=== PATIENT | male | born 1940 | race Caucasian/White ===

== ENCOUNTER 2017-02-25 12:37 | Emergency (ER) | payer MEDICARE ==
[2017-02-25] MEDS ORDERED: NAPROXEN 250 MG TABLET PO ONE (13:05)
[2017-02-25] MEDS ORDERED: CEPHALEXIN 500 MG CAPSULE PO ONE (13:05)
[2017-02-25] MEDS ORDERED: DIPH/PERTUSS(ACELL)/TETANUS VAC/PF 0.5 ML SYR (>=10YO) IM ONE (13:05)
--- NOTE | 2017-02-25 13:09 | ER Document Report ---
HPI - HPI Patient complains to provider of: r wrist pain Onset: Other - 2 days Onset/Duration: Persistent Quality of pain: Achy Pain Level: 2 Context: Patient presents complaining of right lateral wrist pain for the past 2 days. Patient denies any injury. Patient does have a history of gout for which he takes daily allopurinol. Patient states that typically his gout affects his feet and he has not had any attacks involving his hands or wrists. Patient denies any fever. Patient does report recently working in the garden and states he got multiple abrasions to bilateral upper extremities. Associated Symptoms: Other - r wrist pain. denies: Fever Exacerbated by: Movement Relieved by: Remaining still Similar symptoms previously: No Recently seen / treated by doctor: No - ROS ROS below otherwise negative: Yes Systems Reviewed and Negative: Yes All other systems reviewed and negative - CONSTITUTIONAL Constitutional: DENIES: Fever - NEURO Neurology: DENIES: Weakness - GASTROINTESTINAL Gastrointestinal: DENIES: Nausea - REPRODUCTIVE Reproductive: DENIES: : - MUSCULOSKELETAL Musculoskeletal: REPORTS: Extremity pain - DERM Skin Color: Erythema Skin Problems: None Past Medical History - General Information source: Patient - Social History Smoking Status: Never Smoker Frequency of alcohol use: Occasional Drug Abuse: None Occupation: none Family History: Reviewed & Not Pertinent Patient has suicidal ideation: No Patient has homicidal ideation: No Pulmonary Medical History: Reports: Hx Pneumonia Renal/ Medical History: Denies: Hx Peritoneal Dialysis GI Medical History: Reports: Hx Ulcer Musculoskeltal Medical History: Reports Hx Gout Past Surgical History: Reports: Hx Cholecystectomy - 2011, Hx Genitourinary Surgery - Part of small colon removed - Immunizations Immunizations up to date: Yes Hx Diphtheria, Pertussis, Tetanus Vaccination: Yes - unknown Vertical Provider Document - CONSTITUTIONAL Agree With Documented VS: Yes Exam Limitations: No Limitations General Appearance: WD/WN, No Apparent Distress - INFECTION CONTROL TRAVEL OUTSIDE OF THE [place] IN LAST 30 DAYS: No - HEENT HEENT: Atraumatic, Normocephalic - NECK Neck: Normal Inspection - RESPIRATORY Respiratory: Breath Sounds Normal, No Respiratory Distress O2 Sat by Pulse Oximetry: 96 - CARDIOVASCULAR Cardiovascular: Regular Rate, Regular Rhythm Pulses: Normal: Radial - BACK Back: Normal Inspection - MUSCULOSKELETAL/EXTREMETIES Musculoskeletal/Extremeties: MAEW, Tender - Over ulnar aspect of the right wrist with overlying erythema, no obvious edema - NEURO Level of Consciousness: Awake, Alert, Appropriate Motor/Sensory: No Motor Deficit - DERM Integumentary: Warm, Dry. negative: Abscess Notes: With multiple scratches to bilateral wrists and hands Course - Re-evaluation Re-evalutation: 02/25/17 13:43 The patient has been informed that they may have pre-hypertension or hypertension based on a blood pressure reading in the emergency department. I recommend that patient call the primary care provider listed on their discharge instructions or a physician of their choice by this week to arrange follow-up for further evaluation of possible pre-hypertension or hypertension. Suspect that patient is having a flareup of his gout involving his wrist. Will cover for cellulitis given his recent abrasions to bilateral upper extremities. Discussed worsening signs or symptoms the patient should return immediately for. Patient verbalized understanding - Vital Signs Vital signs: Temp Pulse Resp BP Pulse Ox 97.6 F 73 146/81 H 96 02/25/17 12:41 02/25/17 12:41 02/25/17 12:41 02/25/17 12:41 - Diagnostic Test Radiology reviewed: Pending, Image reviewed Discharge - Discharge Clinical Impression: Gout Qualifiers: Gout site: wrist Encounter type: initial encounter Chronicity: unspecified Laterality: right Cellulitis Qualifiers: Site of cellulitis: extremity Site of cellulitis of extremity: upper extremity Laterality: right Qualified Code(s): L03.113 - Cellulitis of right upper limb Condition: Stable Disposition: HOME, SELF-CARE Instructions: Gout ([facility]), Gout Diet ([facility]), Cellulitis ([facility]), Cephalexin ([facility]) Additional Instructions: Return immediately for any new or worsening symptoms Followup with your primary care provider, call tomorrow to make a followup appointment Prescriptions: Acetaminophen with Codeine [Acetaminophen-Cod #3 Tablet] 1 each PO TID PRN #12 tablet PRN Reason: Cephalexin Monohydrate [Keflex 500 mg Capsule] 500 mg PO BID 7 Days Forms: Elevated Blood Pressure Referrals: LATOSHA ENRIQUE MD [Primary Care Provider] - Follow up in 3-5 days
--- NOTE | 2017-02-25 13:46 | RADIOLOGY REPORT (SQ) ---
EXAM DESCRIPTION: WRIST RIGHT 3 VIEWS COMPLETED DATE/TIME: 02/25/2017 1:30 pm REASON FOR STUDY: r lateral wrist pain COMPARISON: None. NUMBER OF VIEWS: Three views. TECHNIQUE: AP, lateral, and oblique radiographic images acquired of the right wrist. LIMITATIONS: None. FINDINGS: MINERALIZATION: Normal. BONES: No acute fracture or dislocation. No worrisome bone lesions. Normal alignment. SOFT TISSUES: No soft tissue swelling. No foreign body. OTHER: Some arthritic changes are noted. If an occult fracture suspected clinically, consider follow up imaging. IMPRESSION: No acute fracture identified. Mild arthritic change. TECHNICAL DOCUMENTATION: JOB ID: [id number] [employer]- All Rights Reserved
[2017-02-25 14:04] VITALS: BP 145/73
== END 2017-02-25 13:59 | disposition home or self-care (01) ==
LOC: ER 12:37
DX: M10.9 Gout, unspecified (principal); M25.531 Pain in right wrist; L03.113 Cellulitis of right upper limb; R03.0 Elevated blood-pressure reading, without diagnosis of hypertension; Z90.49 Acquired absence of other specified parts of digestive tract; Z23 Encounter for immunization
CPT/HCPCS: 99283; 90471; 73110; 90715; A9270 ×2

== ENCOUNTER 2017-06-09 18:15 | Emergency (ER) | payer MEDICARE ==
[2017-06-09] MEDS ORDERED: NITROFURANTOIN MONOHYD/M-CRYST 100 MG CAPSULE PO ONE (21:27)
--- NOTE | 2017-06-09 21:44 | ER Document Report ---
ED Extremity Problem, Lower - General Chief Complaint: Foot Injury Stated Complaint: RIGHT FOOT PAIN Time Seen by Provider: 06/09/17 21:35 Mode of Arrival: Ambulatory Information source: Patient Notes: 37-year-old male presents to ED for complaint of pain to the back of his right foot that started Friday. His states he climbs up and down ladders put in brick on their house. He states he does not know of any definite injury but the pain is severe in his heel. Patient has a history of gout but this is not a gout flareup he says there is no redness no warmth and no swelling to the area. TRAVEL OUTSIDE OF THE [place] IN LAST 30 DAYS: No - HPI Patient complains to provider of: Pain Location: Foot - Right foot Occurred: Other - Friday Onset/Duration: Gradual, Worse Quality of pain: Sharp, Throbbing Severity: Moderate Pain Level: 4 Context: Other - Painful ambulation Recent injury: Possibly Associated symptoms: Painful ambulation Exacerbated by: Walking Relieved by: Nothing - Related Data Allergies/Adverse Reactions: No Known Allergies Allergy (Verified 06/09/17 18:29) Past Medical History - General Information source: Patient - Social History Smoking Status: Never Smoker Cigarette use (# per day): No Chew tobacco use (# tins/day): No Smoking Education Provided: No Frequency of alcohol use: None Drug Abuse: None Occupation: Retired Lives with: Family Family History: Reviewed & Not Pertinent Patient has suicidal ideation: No Patient has homicidal ideation: No - Past Medical History Cardiac Medical History: Reports: None Pulmonary Medical History: Reports: Hx Pneumonia EENT Medical History: Reports: None Neurological Medical History: Reports: None Endocrine Medical History: Reports: None Renal/ Medical History: Reports: None Malignancy Medical History: Reports None GI Medical History: Reports: Hx Ulcer, Hx Colonoscopy, Hx Endoscopy Musculoskeltal Medical History: 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, Reports Hx Gout Skin Medical History: Reports None Psychiatric Medical History: Reports: None Traumatic Medical History: Reports: None Infectious Medical History: Reports: None Past Surgical History: Reports: Hx Abdominal Surgery - Repair of ulcer, Hx Bowel Surgery - Part of small colon removed, Hx Cholecystectomy - 2011 - Immunizations Immunizations up to date: Yes Hx Diphtheria, Pertussis, Tetanus Vaccination: Yes - unknown Review of Systems - Review of Systems Constitutional: No symptoms reported EENT: No symptoms reported Cardiovascular: No symptoms reported Respiratory: No symptoms reported Gastrointestinal: No symptoms reported Genitourinary: No symptoms reported Male Genitourinary: No symptoms reported Musculoskeletal: Other - Right heel pain Skin: No symptoms reported Hematologic/Lymphatic: No symptoms reported Neurological/Psychological: No symptoms reported -: Yes All other systems reviewed and negative Physical Exam - Vital signs Vitals: Temp Pulse Resp BP Pulse Ox 98.3 F 87 16 127/74 H 98 06/09/17 18:26 06/09/17 18:26 06/09/17 18:26 06/09/17 18:26 06/09/17 18:26 Interpretation: Normal - General General appearance: Appears well, Alert - HEENT Head: Normocephalic, Atraumatic Eyes: Normal Pupils: PERRL - Respiratory Respiratory status: No respiratory distress Chest status: Nontender Breath sounds: Normal Chest palpation: Normal - Cardiovascular Rhythm: Regular Heart sounds: Normal auscultation Murmur: No - Abdominal Inspection: Normal Distension: No distension Bowel sounds: Normal Tenderness: Nontender Organomegaly: No organomegaly - Back Back: Normal, Nontender - Extremities General upper extremity: Normal inspection, Nontender, Normal color, Normal ROM , Normal temperature General lower extremity: Normal inspection, Normal color, Normal ROM, Normal temperature. No: Adal's sign Foot: Tender, No evidence of FB, Other - Pain to the posterior heel since Friday - Neurological Neuro grossly intact: Yes Cognition: Normal Orientation: AAOx4 Marie Coma Scale Eye Opening: Spontaneous Marie Coma Scale Verbal: Oriented Marie Coma Scale Motor: Obeys Commands Marie Coma Scale Total: 15 Speech: Normal Motor strength normal: LUE, RUE, LLE, RLE Sensory: Normal - Psychological Associated symptoms: Normal affect, Normal mood - Skin Skin Temperature: Warm Skin Moisture: Dry Skin Color: Normal Course - Vital Signs Vital signs: Temp Pulse Resp BP Pulse Ox 98.3 F 87 16 127/74 H 98 06/09/17 18:26 06/09/17 18:26 06/09/17 18:26 06/09/17 18:26 06/09/17 18:26 Procedures - Immobilization Right Ankle Time completed: 22:54 Immobilizer type: Ronny wrap Performed by: Other - drop hammer set up operator Post-Proc Neuro Vasc Exam: Normal Alignment checked and good: Yes Discharge - Discharge Clinical Impression: Tendonitis, Achilles, right Condition: Stable Disposition: HOME, SELF-CARE Additional Instructions: Tendonitis The pain you are having is due to tendonitis -- an inflammation around a muscle tendon. It's usually caused by overuse or repeated minor injuries ( strains) of the tendon. Tendonitis can take two to four weeks to heal. In fact, you may actually worsen for a few days despite treatment. Tendonitis is usually treated with rest, local heat, and antiinflammatory medication. Sometimes cold packs are recommended if the tendonitis has just started. If the pain is severe or prolonged, cortisone injections may be required. Call the doctor if pain or swelling become severe, if new discoloration or redness appears, or if numbness is noted. Ronny Wrap A compression dressing (ronny wrap) has been placed. This helps hold the area still. It limits swelling and internal bleeding. The wrap should be comfortably snug -- not tight. You should feel a sense of pressure, but not severe pain under the wrap. Unless the physician tells you otherwise, you can adjust the wrap for comfort. If the wrap causes symptoms suggesting it's too tight -- uncomfortable pressure, swelling or discoloration beyond the wrap, numbness, or severe pain - - you must loosen the wrap. If these symptoms don't resolve promptly, return for re-evaluation. Exercises for the Foot Muscles Stretching and strengthening of the foot muscles is an important part of recovery from injury, as well as in treatment and prevention of overuse syndromes like plantar fasciitis. TOWEL CURLS: Put your foot on a dry towel. Curl your toes to pick it up, then drop it. As it becomes easier, use a heavier towel. Repeat 20 times, twice daily. GONZALEZ CURLS: Lift and turn your knee, so your foot is against the opposite leg about mid-gonzalez. Try to "grab" the entire gonzalez bone with your toes, while moving your foot up and down the leg for one minute. Repeat twice daily. TOE LIFTS: Put your opposite foot over your 2nd to 5th toes. Now lift the toes up, pushing the other foot upward. Repeat 10 times, twice daily. Repeat using the large toe. EVERSIONS: Cross the opposite foot over, placing the heel just behind the 4th and 5th toes. Try to lift up the outside of the bottom foot. Hold 10 seconds. Repeat twice daily. Ankle Exercise Program To restore the ankle to normal, it's important to strengthen the muscles that support it -- especially those that lift the foot upward. Good muscle tone will keep stress off the injury while it heals. EARLY - Once the doctor allows you to walk on the ankle, you can begin. Lean your back against a wall. Standing on your heels, lift the balls of both feet up, hold a second, then back down. Work up to 100 repetitions. Next, using the wall for balance, stand on one foot. Lift the heel up, then down. Work up to 100 repetitions for each foot. BALANCE TRAINING - To retrain the ankle to react to "tipping", stand on one foot for two minutes. Go from flat-footed to standing on the toes and back again slowly. Repeat with the other foot. LATER - When your ankle has regained full motion and you're walking pain- free, begin exercise against resistance. In a sitting position, pull the top of the foot towards you against resistance 20 times. Use either elastic material or a weight attached to the toes. Swing the knee so the foot is to the side of the body, and repeat. Anti-Inflammatory Medication You have received a prescription for an antiinflammatory agent. This is an excellent, safe drug for pain control. In addition, it has potent antiinflammatory effects which are beneficial, especially in the treatment of injuries, arthritis, or tendonitis. It's best to take this medicine with food. Persons with ulcer disease or allergy to aspirin should notify their physician of this before taking this drug. Take the medication exactly as prescribed. Don't take additional doses unless instructed to do so by your doctor. If you develop wheezing, shortness of breath, hives, faintness, stomach pain, vomiting, or dark black stools, return for re-evaluation at once. FOLLOW-UP CARE: If you have been referred to a physician for follow-up care, call the physician s office for an appointment as you were instructed or within the next two days. If you experience worsening or a significant change in your symptoms, notify the physician immediately or return to the Emergency Department at any time for re-evaluation. Prescriptions: Ibuprofen 600 mg PO Q6HP PRN #20 tablet PRN Reason: Forms: Elevated Blood Pressure Referrals: LATOSHA ENRIQUE MD [Primary Care Provider] - Follow up as needed CRISTIANO CARRERA DO [ACTIVE STAFF] - Follow up as needed
--- NOTE | 2017-06-09 22:21 | RADIOLOGY REPORT (SQ) ---
EXAM DESCRIPTION: FOOT RIGHT COMPLETE COMPLETED DATE/TIME: 06/09/2017 9:45 pm REASON FOR STUDY: pain back of foot COMPARISON: September 2014 NUMBER OF VIEWS: Three views. TECHNIQUE: AP, lateral and oblique radiographic images acquired of the right foot. LIMITATIONS: None. FINDINGS: MINERALIZATION: Normal. BONES: No acute fracture or dislocation. No worrisome bone lesions. JOINTS: Mild degenerative changes are identified at the level the 1st MTP joint SOFT TISSUES: No soft tissue swelling. No foreign body. OTHER: No other significant finding. IMPRESSION: NO RADIOGRAPHIC EVIDENCE OF ACUTE INJURY other findings as noted above. TECHNICAL DOCUMENTATION: JOB ID: [id number] [employer]- All Rights Reserved
[2017-06-09] MEDS ORDERED: IBUPROFEN 600 MG TABLET PO ONE (22:48)
[2017-06-09 23:01] VITALS: BP 118/72
== END 2017-06-09 22:56 | disposition home or self-care (01) ==
LOC: ER 18:15
DX: M76.61 Achilles tendinitis, right leg (principal); M79.671 Pain in right foot; M10.9 Gout, unspecified; X50.3XXA Overexertion from repetitive movements, initial encounter
CPT/HCPCS: 99283

== ENCOUNTER → 2017-06-25 | Outpatient (CLI) | payer MEDICARE ==
--- NOTE | 2017-06-25 09:21 | RADIOLOGY REPORT (SQ) ---
EXAM DESCRIPTION: MRI HEAD WITHOUT COMPLETED DATE/TIME: 06/25/2017 7:41 am REASON FOR STUDY: TINNITUS OF BOTH EARS (H93.12) H93.12 TINNITUS, LEFT EAR COMPARISON: None. TECHNIQUE: Multiplanar imaging includes non-contrasted T1, T2, FLAIR, and Diffusion with ADC map seq uences. Thin sections through the internal auditory canals. Images stored on PACS. LIMITATIONS: None. FINDINGS: ANATOMY: No anomalies. Normal vascular flow voids. Pituitary fossa normal. CSF SPACES: Normal in size and contour. No hemorrhage. CEREBRUM: A few high-signal intensity lesions scattered throughout the white matter on FLAIR imaging with distribution suggesting chronic micro-vascular ischemic change. Sulci and gyri normal in size a nd contour. No evidence of hemorrhage, mass or extraaxial fluid collection. POSTERIOR FOSSA: No signal alteration. No hemorrhage. No edema, masses or mass effect. Internal jennifer tory canals, cerebello-pontine angles, mastoids normal. DIFFUSION: Negative for acute or sub-acute infarction. ORBITS: No masses. Globes normal. PARANASAL SINUSES: No fluid levels. Mucosa normal. OTHER: No other significant finding. IMPRESSION: No acute abnormality in the brain. EVIDENCE OF ACUTE STROKE: NO. TECHNICAL DOCUMENTATION: JOB ID: [id number] [employer]- All Rights Reserved
== END ==
LOC: RAD 06:49
PROVIDERS: ATTEND Otolaryngology
DX: H93.13 Tinnitus, bilateral (principal)
CPT/HCPCS: 70551

== ENCOUNTER 2017-10-12 06:56 | Emergency (ER) | payer MEDICARE ==
[2017-10-12 07:08] VITALS: BP 136/68
[2017-10-12] MEDS ORDERED: TETRACAINE HCL 0.5% OPH SOLN 2 ML OS ONE (07:19)
[2017-10-12] MEDS ORDERED: PREDNISOLONE ACETATE 1% OPH SUSP 5 ML OS ONE (07:43)
[2017-10-12] MEDS ORDERED: CYCLOPENTOLATE HCL 2% OPH SOLN 2 ML OS ONE (07:45)
--- NOTE | 2017-10-12 07:52 | ER Document Report ---
ED Eye Complaint - General Chief Complaint: Eye Pain Stated Complaint: LEFT EYE PAIN Time Seen by Provider: 10/12/17 07:13 Mode of Arrival: Ambulatory Information source: Patient Notes: Patient is a 77-year-old male who presents to the ER today for left eye redness and pain since 2 days ago. Patient denies any injury. 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 He denies any drainage, watering. He does wear glasses, no contacts. He does have a history of cataract. No history of glaucoma. He does have an eye doctor that he follows with. He denies any runny nose, cough, upper respiratory symptoms or illness recently. TRAVEL OUTSIDE OF THE [place] 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, Reports Hx Gout Past Surgical History: Reports: Hx Abdominal Surgery - Repair of ulcer, Hx Bowel Surgery - Part of small colon removed, Hx Cholecystectomy - 2011, Hx Genitourinary Surgery - Part of small colon removed - Immunizations Immunizations up to date: Yes Hx Diphtheria, Pertussis, Tetanus Vaccination: Yes - unknown Review of Systems - Review of Systems Constitutional: No symptoms reported EENT: See HPI Cardiovascular: No symptoms reported Respiratory: No symptoms reported Gastrointestinal: No symptoms reported Genitourinary: No symptoms reported Male Genitourinary: No symptoms reported Musculoskeletal: No symptoms reported Skin: No symptoms reported Hematologic/Lymphatic: No symptoms reported Neurological/Psychological: No symptoms reported Physical Exam - Vital signs Vitals: Temp Pulse Resp BP Pulse Ox 97.4 F 58 L 18 136/68 H 98 10/12/17 07:03 10/12/17 07:03 10/12/17 07:03 10/12/17 07:03 10/12/17 07:03 - Notes Notes: PHYSICAL EXAMINATION: GENERAL: Well-appearing and in no acute distress. HEAD: Atraumatic, normocephalic. EYES: Left pupil is slightly smaller than the right, but reactive to light, extraocular movements intact and does not cause pain, sclera erythematous to the left eye laterally and inferiorly to the cornea, conjunctiva are normal. No watering, no drainage NECK: Normal range of motion, supple without lymphadenopathy LUNGS: CTAB and equal. No wheezes rales or rhonchi. HEART: Regular rate and rhythm without murmurs EXTREMITIES: Normal range of motion, no pitting edema. No cyanosis. NEUROLOGICAL: Cranial nerves grossly intact. Normal sensory/motor exams. PSYCH: Normal mood, normal affect. SKIN: Warm, Dry, normal turgor, no rashes or lesions noted Course - Re-evaluation Re-evalutation: 10/12/17 07:51 I exam was performed, pressures in the left eye were 15, 15 and 14 consecutively. Fluorescein stain revealed no ulcer or abrasion, foreign body. Due to patient's constricted pupil, pain and erythema without drainage, I will treat for uveitis with antiviral eyedrops and prednisone acetate eyedrops. He was also given cyclopentolate here in the emergency department to dilate the eye to help with any spasm that may be causing pain. patient does have an eye doctor and states he will call them on the next business day to have a follow- up appointment. 10/12/17 07:52 - Vital Signs Vital signs: Temp Pulse Resp BP Pulse Ox 97.4 F 58 L 18 136/68 H 98 10/12/17 07:03 10/12/17 07:03 10/12/17 07:03 10/12/17 07:03 10/12/17 07:03 Procedures - Eye Procedure Left Time completed: 07:40 Eye Irrigated w/ Saline (ccs): 30 Alcaine Drops Administered: Yes Fluorescein applied: Left Cyclogel 2 Drops Administered: Left eye Slit lamp used: No Notes: 10/12/17 07:52 No ulcer or abrasion, no foreign body Discharge - Discharge Clinical Impression: Acute anterior uveitis of left eye Condition: Stable Disposition: HOME, SELF-CARE Additional Instructions: Return immediately for any new or worsening symptoms. Follow up with eye doctor, call tomorrow to make followup appointment. Prescriptions: Trifluridine [Viroptic 1% Oph Soln 7.5 Ml Bottle] 1 drop OS Q2 #1 bottle Referrals: LATOSHA ENRIQUE MD [Primary Care Provider] - Follow up as needed
== END 2017-10-12 08:15 | disposition home or self-care (01) ==
LOC: ER 06:56
DX: H20.00 Unspecified acute and subacute iridocyclitis (principal); H57.12 Ocular pain, left eye; H54.40 Blindness, one eye, unspecified eye; Z90.49 Acquired absence of other specified parts of digestive tract
CPT/HCPCS: 99283; J3490 ×2

== ENCOUNTER 2018-01-18 21:14 | Emergency (ER) | payer MEDICARE ==
--- NOTE | 2018-01-18 21:33 | ER Document Report ---
ED General - General TRAVEL OUTSIDE OF THE [place] IN LAST 30 DAYS: No <NICO SAAB - Last Filed: 01/18/18 23:55> <JERSON BEATTY - Last Filed: 01/19/18 00:13> - General Chief Complaint: Jaw Injury Stated Complaint: JAW LOCKED UP Time Seen by Provider: 01/18/18 21:28 - HPI Notes: Patient is a 77-year-old male who presents to the ED complaining of his jaw being stuck in the open position that occurred just prior to arrival. Patient states that he was opening his mouth when he felt the right side "slip out" and now his jaw stuck. Patient states that he does not have any other concerns or complaints. He has otherwise been eating and drinking without difficulties prior to incident. Denies any drug allergies. No other concerns or complaints. Patient states that his situation is just uncomfortable, but does not have any sharp pain. Denies any injury. Patient states that this has happened in the past, but he was able to "put it back" on his own. Denies any headache, fever, head injury, neck pain, URI, sore throat, chest pain, palpitations, syncope, cough, shortness of breath, wheeze, dyspnea, abdominal pain, nausea/vomiting/diarrhea, urinary retention, dysuria, hematuria, or rash. (NICO SAAB) - Related Data Allergies/Adverse Reactions: No Known Allergies Allergy (Verified 06/09/17 18:29) Past Medical History - Social History Smoking Status: Unknown if Ever Smoked Family History: Reviewed & Not Pertinent Pulmonary Medical History: Reports: Hx Pneumonia Renal/ Medical History: Denies: Hx Peritoneal Dialysis GI Medical History: Reports: Hx Ulcer, Hx Colonoscopy, Hx Endoscopy Musculoskeltal Medical History: 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, Reports Hx Gout Past Surgical History: Reports: Hx Abdominal Surgery - Repair of ulcer, Hx Bowel Surgery - Part of small colon removed, Hx Cholecystectomy - 2011, Hx Genitourinary Surgery - Part of small colon removed - Immunizations Immunizations up to date: Yes Hx Diphtheria, Pertussis, Tetanus Vaccination: Yes - unknown <NICO SAAB - Last Filed: 01/18/18 23:55> Review of Systems - Review of Systems -: Yes All other systems reviewed and negative <NICO SAAB - Last Filed: 01/18/18 23:55> Physical Exam <NICO SAAB - Last Filed: 01/18/18 23:55> <JERSON BEATTY - Last Filed: 01/19/18 00:13> - Vital signs Vitals: Temp Pulse Resp BP Pulse Ox 97.7 F 69 20 121/62 98 01/18/18 21:18 01/18/18 21:18 01/18/18 21:18 01/18/18 21:18 01/18/18 21:18 - Notes Notes: PHYSICAL EXAMINATION: GENERAL: Well-appearing, well-nourished and in no acute distress. A&Ox4. Answers questions appropriately. Moves comfortably w/o notable distress HEAD: Atraumatic, normocephalic. EYES: Pupils equal round and reactive to light, extraocular movements intact, sclera anicteric, conjunctiva are normal. ENT: Nares patent and with clear discharge. oropharynx no erythema without exudates. No tonsilar hypertrophy without erythema or exudate. No palatine shift. Uvula midline. No tongue protrusion. No drooling, hoarseness, or airway compromise. Moist mucous membranes. Mandible is open and unable to be closed. + possible dislocation on the rt side. Rt lower jaw does appear lower than the left. NECK: Normal range of motion, supple without lymphadenopathy. No rigidity/ meningismus. LUNGS: Breath sounds clear to auscultation bilaterally and equal. No wheezes rales or rhonchi. No retractions HEART: Regular rate and rhythm without murmurs, rubs, gallops. NEUROLOGICAL: Normal speech, normal gait. Normal sensory, motor exams PSYCH: Normal mood, normal affect. SKIN: Warm, Dry, normal turgor, no rashes or lesions noted. (NICO SAAB) Course <NICO SAAB - Last Filed: 01/18/18 23:55> <JERSON BEATTY - Last Filed: 01/19/18 00:13> - Re-evaluation Re-evalutation: 01/18/18 21:[address] Beatty. We will obtain a mandible XR and place a saline lock. 01/18/18 23:[address] Jain Radiologist about XR result. Recommended CT scan if worried about fracture. The jaw does appear to be dislocated on exam. Pt is very irritable at this time. Reviewed with Dr. Beatty and we will start the set up for conscious sedation with Propofol 0.5mg/kg start. 01/18/18 23:52 Patient is an afebrile, well-hydrated, 77-year-old male who presents to the ED with jaw dislocation, since reduced. Vitals are acceptable. PE is otherwise unremarkable. Procedural sedation and Manual reduction was performed to assess without any complications by Dr. Beatty. The mandible spontaneously reduced once sedated. Patient states that he is feeling much better and is ready to go home. patient has an appointment already set up with his primary care doctor on Friday. Conservative measures for symptoms. Return to the ED with any worsening/concerning symptoms otherwise as reviewed in discharge. Patient is in agreement. (NICO SAAB) - Vital Signs Vital signs: Temp Pulse Resp BP Pulse Ox 97.7 F 65 16 118/64 99 01/18/18 21:18 01/18/18 23:51 01/18/18 23:51 01/18/18 23:51 01/18/18 23:51 Procedures - Conscious Sedation Conscious sedation Time started: 23:30 Time completed: 23:41 Consent obtained: Yes Indication: Mandible reduction Prior complications: Procedural sedation Pt with a mild systemic disease.: P2. - ASA Classification. Airway Evaluation: Normal anatomy Mallampati Classification: Class 2 Used during procedure: Suction available, IV access obtained, Pulse ox on pt., diet consultant on pt. Medications administered: Diprivan Reversal agents: None I personally performed/intraservice time: Sedation, Procedure Complications: No - Joint Reduction/Fracture Care Mandible Time completed: 23:41 Consent obtained: Yes Conscious sedation: Yes Pre-procedure NV exam: Yes Fracture: Other Manipulation comment: Reduced with induction of procedural sedation. Post-procedure NV exam: Yes Complications: No <JERSON BEATTY - Last Filed: 01/19/18 00:13> Discharge <NICO SAAB - Last Filed: 01/18/18 23:55> <JERSON BEATTY - Last Filed: 01/19/18 00:13> - Discharge Clinical Impression: Jaw dislocation Qualifiers: Encounter type: initial encounter Qualified Code(s): S03.00XA - Dislocation of jaw, unspecified side, initial encounter Condition: Stable Disposition: HOME, SELF-CARE Additional Instructions: Rest, Ice Tylenol/ibuprofen as needed Light stretches daily Strength exercises as able Moist heat and massage may help F/u with your PCP in 2-3 days for a recheck Consider consult(s) with Oral/maxillofacial surgery for ongoing/worsening symptoms Return to the ED with any worsening symptoms and/or development of fever, headache, chest pain, palpitations, syncope, shortness of breath, trouble breathing, abdominal pain, n/v/d, muscle weakness/paralysis, numbness/tingling, swelling, redness, or other worsening symptoms that are concerning to you. Referrals: LATOSHA ENRIQUE MD [Primary Care Provider] - 01/20/18
--- NOTE | 2018-01-18 22:24 | RADIOLOGY REPORT (SQ) ---
EXAM DESCRIPTION: MANDIBLE 4 VIEWS OR MORE COMPLETED DATE/TIME: 01/18/2018 9:55 pm REASON FOR STUDY: jaw is stuck open COMPARISON: None. NUMBER OF VIEWS: Four view. TECHNIQUE: Images of the mandible acquired. AP, Dioni's, angled right, angled left mandible images. LIMITATIONS: None. FINDINGS: MANDIBLE: No acute fracture. Both the right and left temporomandibular joints are aligne d in the open position with mandibular head anterior to the temporal bones fossa. ORBITS: No fracture. No foreign body. SINUSES: No mucosal thickening. No air fluid levels. FACIAL BONES: No fracture. OTHER: No other significant finding. IMPRESSION: No acute fracture. Both the right and left temporomandibular joints are aligned in the open position with mandibular head anterior to the temporal bones fossa. TECHNICAL DOCUMENTATION: JOB ID: [id number] [id number] 2010 [employer]- All Rights Reserved Reading location - IP/workstation name: [email or web address]
[2018-01-18] MEDS ORDERED: PROPOFOL INJ 200 MG/20 ML VIAL IV ONE ×2 (23:03→23:40)
[2018-01-19 00:32] VITALS: BP 113/60
[2018-01-19] MEDS ORDERED: PROPOFOL INJ 200 MG/20 ML VIAL IV ONE (23:40)
== END 2018-01-19 00:32 | disposition home or self-care (01) ==
LOC: ER 21:14
PROC: 0RSCXZZ Reposition Right Temporomandibular Joint, External Approach (ICD-10-PCS; principal; 2018-01-18)
DX: S09.93XA Unspecified injury of face, initial encounter (principal); S03.00XA Dislocation of jaw, unspecified side, initial encounter; X58.XXXA Exposure to other specified factors, initial encounter; Z90.49 Acquired absence of other specified parts of digestive tract
CPT/HCPCS: 99283; 99152; 70110; 21480; J2704

== ENCOUNTER 2019-05-11 14:43 | Emergency (ER) | payer MEDICARE, OTHER ==
--- NOTE | 2019-05-11 15:14 | ER Document Report ---
ED Medical Screen (RME) - General Stated Complaint: FALL/GROIN PAIN Time Seen by Provider: 05/11/19 15:06 Primary Care Provider: LATOSHA ENRIQUE MD [Primary Care Provider] - Follow up as needed Mode of Arrival: Ambulatory Information source: Patient Notes: This 79-year-old male presents emergency department with complaints of left testicular swelling and ecchymosis. Reports he was fixing a deck when he fell and straddled the board falling on his groin. Reports he is able to void without problems but left testicle is swollen and black. Also reports at that time he cut his left wrist while working and reports his tetanus is up-to-date and he was stung by 3 bees. Reports he is not allergic to bees. Patient declines Motrin or Tylenol. Reports he is not taking any type of blood thinner. I have greeted and performed a rapid initial assessment of this patient. A comprehensive ED assessment and evaluation of the patient, analysis of test results and completion of the medical decision making process will be conducted by additional ED providers. Dictation of this chart was performed using voice recognition software; therefore, there may be some unintended grammatical errors. TRAVEL OUTSIDE OF THE [place] IN LAST 30 DAYS: No - Related Data Allergies/Adverse Reactions: No Known Allergies Allergy (Verified 06/09/17 18:29) Past Medical History Pulmonary Medical History: Reports: Hx Pneumonia Renal/ Medical History: Denies: Hx Peritoneal Dialysis GI Medical History: Reports: Hx Ulcer, Hx Colonoscopy, Hx Endoscopy Musculoskeltal Medical History: 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, Reports Hx Gout Past Surgical History: Reports: Hx Abdominal Surgery - Repair of ulcer, Hx Bowel Surgery - Part of small colon removed, Hx Cholecystectomy - 2011, Hx Genitourinary Surgery - Part of small colon removed - Immunizations Immunizations up to date: Yes Hx Diphtheria, Pertussis, Tetanus Vaccination: Yes - unknown Physical Exam - Vital signs Vitals: Temp Pulse Resp BP Pulse Ox 97.8 F 88 16 115/64 98 05/11/19 14:57 05/11/19 14:57 05/11/19 14:57 05/11/19 14:57 05/11/19 14:57 Course - Vital Signs Vital signs: Temp Pulse Resp BP Pulse Ox 97.8 F 88 16 115/64 98 05/11/19 14:57 05/11/19 14:57 05/11/19 14:57 05/11/19 14:57 05/11/19 14:57 Doctor's Discharge - Discharge Referrals: LATOSHA ENRIQUE MD [Primary Care Provider] - Follow up as needed
[2019-05-11 15:39] LABS: APPEARANCE,URINE CLEAR; BILIRUBIN,URINE NEGATIVE (NEGATIVE); COLOR,URINE YELLOW; GLUCOSE, URINE NEGATIVE (NEGATIVE); KETONES,URINE TRACE mg/dL (NEGATIVE); LEUKOCYTE ESTERASE,URINE NEGATIVE (NEGATIVE); NITRITE,URINE NEGATIVE (NEGATIVE); PROTEIN,URINE NEGATIVE (NEGATIVE); URINE SPECIFIC GRAVITY 1.021
--- NOTE | 2019-05-11 17:30 | ER Document Report ---
ED General - General Chief Complaint: Groin Injury Stated Complaint: FALL/GROIN PAIN Time Seen by Provider: 05/11/19 15:06 Primary Care Provider: LATOSHA ENRIQUE MD [Primary Care Provider] - Follow up as needed Mode of Arrival: Ambulatory Notes: Patient is a 79-year-old male that presents to the emergency department for chief complaint of straddle injury. Patient reports that he was pulling apart a deck, and lost his footing and ended up straddling a 2 by a piece of wood. He states this occurred around 10 AM this morning. He has had bruising around his testicles particularly in the left and some discomfort associated with that he currently rates his pain as a 2 out of 10 describes as an aching sensation. He denies being on any blood thinners. Denies any head or neck injury. He states his been able to walk without any difficulty. He denies any numbness, tingling or weakness. Denies any hematuria or dysuria. Denies any other complaints at this time. Past Medical History: Hypertension Past Surgical History: Denies recent or pertinent surgical history Social History: Denies tobacco, alcohol or drug use. Family History: Reviewed and noncontributory for presenting illness Allergies: Reviewed, see documented allergy list. REVIEW OF SYSTEMS: Other than noted above, the 12 point review of systems was reviewed with the patient and were negative, all pertinent findings are included in the HPI. PHYSICAL EXAMINATION: Vital signs reviewed, nursing noted reviewed. GENERAL: Well-appearing, well-nourished and in no acute distress. HEAD: Atraumatic, normocephalic. EYES: Eyes appear normal, extraocular movements intact, sclera anicteric, conjunctiva are normal. ENT: nares patent, oropharynx clear without exudates. Moist mucous membranes. NECK: Normal range of motion, supple without lymphadenopathy, no midline tenderness LUNGS: Breath sounds clear to auscultation bilaterally and equal. No wheezes rales or rhonchi. HEART: Regular rate and rhythm without murmurs ABDOMEN: Soft, nontender, normoactive bowel sounds. No rebound, guarding, or rigidity. No masses appreciated. EXTREMITIES: Nontender, good range of motion, no pitting or edema. Patient has excellent range of motion of both his lower extremities particular the hips, negative for logrolling, is able to flex at the hip to 60 degrees without any issues or pain. There is no shortening or gross deformity of the lower extremities. Male genital: Patient is noted to have scrotal ecchymosis and mild edema particular in the left compared to the right, the testicles appear to be intact with palpation, and only mildly tender particular in the left compared to the right. There is mild ecchymosis at the base of the penis as well, but there is no tenderness to this area. There is no perineal tenderness to palpation. There is no blood at the meatus. NEUROLOGICAL: No focal neurological deficits. Moves all extremities spontaneously Motor and sensory grossly intact on exam. PSYCH: Normal mood, normal affect. SKIN: Warm, Dry, normal turgor, no rashes or lesions noted on exposed skin TRAVEL OUTSIDE OF THE [place] IN LAST 30 DAYS: No - Related Data Allergies/Adverse Reactions: No Known Allergies Allergy (Verified 06/09/17 18:29) Home Medications: Allopurinol Past Medical History - General Information source: Patient - Social History Smoking Status: Former Smoker Frequency of alcohol use: None Drug Abuse: None Family History: Reviewed & Not Pertinent Patient has suicidal ideation: No Patient has homicidal ideation: No Pulmonary Medical History: Reports: Hx Pneumonia Renal/ Medical History: Denies: Hx Peritoneal Dialysis GI Medical History: Reports: Hx Ulcer, Hx Colonoscopy, Hx Endoscopy Musculoskeletal Medical History: 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, Reports Hx Gout Past Surgical History: Reports: Hx Abdominal Surgery - Repair of ulcer, Hx Bowel Surgery - Part of small colon removed, Hx Cholecystectomy - 2011, Hx Genitour inary Surgery - Part of small colon removed - Immunizations Immunizations up to date: Yes Hx Diphtheria, Pertussis, Tetanus Vaccination: Yes - unknown Physical Exam - Vital signs Vitals: Temp Pulse Resp BP Pulse Ox 97.8 F 88 16 115/64 98 05/11/19 14:57 05/11/19 14:57 05/11/19 14:57 05/11/19 14:57 05/11/19 14:57 Course - Re-evaluation Re-evalutation: Patient seen and examined, vital signs reviewed, on my exam the patient was noted to have bruising to the scrotum, testicles felt intact, scrotal ultrasound was performed, demonstrated normal blood flow, and no injury to the tunica albicans, testicles otherwise intact. Patient was able to ambulate without issues in the emergency department, his pelvis was stable. And no hematuria on his urinalysis. At this point feel the patient be discharged home to follow-up with his primary care physician. He is advised if he has any painful urination or blood in the urine that he should return to the emergency department to be reevaluated. He otherwise appeared well on exam, and I feel he can be safely discharged home at this point. Laboratory 05/11/19 15:20 Urine Color YELLOW Urine Appearance CLEAR Urine pH 6.0 Ur Specific Hamilton 1.021 Urine Protein NEGATIVE Urine Glucose (UA) NEGATIVE Urine Ketones TRACE H Urine Blood NEGATIVE Urine Nitrite NEGATIVE Urine Bilirubin NEGATIVE Urine Urobilinogen 4.0 H Ur Leukocyte Esterase NEGATIVE Urine WBC (Auto) 1 Urine RBC (Auto) 1 Urine Mucus (Auto) RARE Urine Ascorbic Acid 40 H Scrotum Ultrasound 05/11/19 15:11 IMPRESSION: No acute findings. There is a small epididymal cyst on the right. There is trace hydrocele on each side. - Vital Signs Vital signs: Temp Pulse Resp BP Pulse Ox 97.8 F 88 16 115/64 98 05/11/19 14:57 05/11/19 14:57 05/11/19 14:57 05/11/19 14:57 05/11/19 14:57 - Laboratory Laboratory results interpreted by me: 05/11/19 15:20 Urine Ketones TRACE H Urine Urobilinogen 4.0 H Urine Ascorbic Acid 40 H Discharge - Discharge Clinical Impression: Contusion of scrotum Qualifiers: Encounter type: initial encounter Qualified Code(s): S30.22XA - Contusion of scrotum and testes, initial encounter Condition: Stable Disposition: HOME, SELF-CARE Instructions: Contusion ([facility]) Additional Instructions: You may apply warm or cool compress for 20 minutes on 20 minutes off to help with swelling and bruising, you may notice bruising up to 2 weeks after this injury. Please follow-up with your primary care physician. If you do notice painful urination or blood in your urine, please return to the emergency department to be reevaluated. Referrals: LATOSHA ENRIQUE MD [Primary Care Provider] - Follow up in 1 week
--- NOTE | 2019-05-11 18:01 | RADIOLOGY REPORT (SQ) ---
EXAM DESCRIPTION: U/S SCROTUM W/DOPPLER COMPLETED DATE/TIME: 05/11/2019 5:27 pm REASON FOR STUDY: fell, enlarged testicle, pain COMPARISON: None. TECHNIQUE: Static and realtime wiggins scale imaging of the scrotum and testes. Selected color Doppler and spectral images recorded to document blood flow. LIMITATIONS: None. FINDINGS: RIGHT: TESTICLE: Normal size, 3.3 x 3.3 x 2.8 cm. Normal echotexture. Normal blood flow. No mass. EPIDIDYMIS: Normal, 13 x 12 x 14 mm. 7 mm epididymal cyst. HYDROCELE OR VARICOCELE: Trace hydrocele HERNIA OR EXTRA-TESTICULAR MASS: No. OTHER: No other significant finding. LEFT: TESTICLE: Normal size, 3.9 x 3.3 x 2 cm. Normal echotexture. Normal blood flow. No mass. EPIDIDYMIS: Normal, 6 x 11 x 11 mm. HYDROCELE OR VARICOCELE: Trace hydrocele HERNIA OR EXTRA-TESTICULAR MASS: No. OTHER: No other significant finding. IMPRESSION: No acute findings. There is a small epididymal cyst on the right. There is trace hydro yaritza on each side. TECHNICAL DOCUMENTATION: JOB ID: [id number] [employer]- All Rights Reserved Reading location - IP/workstation name: [email or web address]
[2019-05-11 18:24] VITALS: BP 126/62
== END 2019-05-11 18:24 | disposition home or self-care (01) ==
LOC: ER 14:43
DX: S30.22XA Contusion of scrotum and testes, initial encounter (principal); W18.39XA Other fall on same level, initial encounter; Y93.H3 Activity, building and construction; I10 Essential (primary) hypertension; Z90.49 Acquired absence of other specified parts of digestive tract
CPT/HCPCS: 76870; 81001; 93976; 99284

== ENCOUNTER 2019-08-12 09:48 | Observation (INO) | payer MEDICARE, OTHER ==
--- NOTE | 2019-08-12 10:24 | ER Document Report ---
ED Medical Screen (RME) - General Chief Complaint: Nausea Stated Complaint: DIZZINESS,NAUSEA Time Seen by Provider: 08/12/19 10:21 Primary Care Provider: ARTI MUSE, PRODUCTION MAINTENANCE MECHANIC [Primary Care Provider] - Follow up as needed Mode of Arrival: Carried Information source: Patient Notes: 79-year-old male presented to ED for severe dizziness lightheaded and nausea. He states he has been to his primary doctor 3 times this week for the symptoms symptoms. He states that there is probably 6 steps from his bed to the bathroom and he almost fell down due to being so dizzy. Patient is alert oriented respirations regular nonlabored did walk with the assistance of his . He is alert and oriented able to answer my questions appropriately. He states he had a head scan done on Friday at [facility]. States his provider is Arti Manley at [facility]. I have greeted and performed a rapid initial assessment of this patient. A comprehensive ED assessment and evaluation of the patient, analysis of test results and completion of medical decision making process will be conducted by an additional ED providers. TRAVEL OUTSIDE OF THE [place] IN LAST 30 DAYS: No - Related Data Allergies/Adverse Reactions: No Known Allergies Allergy (Verified 06/09/17 18:29) Past Medical History Pulmonary Medical History: Reports: Hx Pneumonia Renal/ Medical History: Denies: Hx Peritoneal Dialysis GI Medical History: Reports: Hx Ulcer, Hx Colonoscopy, Hx Endoscopy Musculoskeltal Medical History: 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, Reports Hx Gout Past Surgical History: Reports: Hx Abdominal Surgery - Repair of ulcer, Hx Bowel Surgery - Part of small colon removed, Hx Cholecystectomy - 2011, Hx Genitourinary Surgery - Part of small colon removed - Immunizations Immunizations up to date: Yes Hx Diphtheria, Pertussis, Tetanus Vaccination: Yes - unknown Physical Exam - Vital signs Vitals: Temp Pulse Resp BP Pulse Ox 97.4 F 62 16 132/69 H 100 08/12/19 09:56 08/12/19 09:56 08/12/19 09:56 08/12/19 09:56 08/12/19 09:56 Course - Vital Signs Vital signs: Temp Pulse Resp BP Pulse Ox 97.4 F 62 16 132/69 H 100 08/12/19 09:56 08/12/19 09:56 08/12/19 09:56 08/12/19 09:56 08/12/19 09:56 Doctor's Discharge - Discharge Referrals: ARTI MUSE, PRODUCTION MAINTENANCE MECHANIC [Primary Care Provider] - Follow up as needed
[2019-08-12 11:28] LABS: ABSOLUTE EOSINOPHILS # (AUTO) 0.3 10^3/uL (0.0-0.6); ABSOLUTE LYMPHOCYTES (AUTO) 1.7 10^3/uL (0.5-4.7); ABSOLUTE MONOCYTES (AUTO) 0.6 10^3/uL (0.1-1.4); ABSOLUTE NEUT (AUTO) 3.8 10^3/uL (1.7-8.2); BASOPHILS % (AUTO) 0.6 % (0-2); EOSINOPHILS % (AUTO) 4.8 % (0-6); HEMATOCRIT 36.3 % (37.9-51.0); HEMOGLOBIN 11.9 g/dL (13.5-17.0); MEAN CORPUSCULAR HEMOGLOBIN 26.9 pg (27.0-33.4); MEAN CORPUSCULAR HGB CONC 32.9 g/dL (32.0-36.0); MEAN CORPUSCULAR VOLUME 82 fl (80-97); MONOCYTES % (AUTO) 9.4 % (3-13); PLATELET COUNT 294 10^3/uL (150-450); RED BLOOD COUNT 4.44 10^6/uL (4.35-5.55); RED CELL DISTRIBUTION WIDTH 16.3 % (11.5-14.0); SEGMENTED NEUTROPHILS % (AUTO) 59.2 % (42-78); TOTAL CELLS COUNTED % (AUTO) 100 %; WHITE BLOOD COUNT 6.4 10^3/uL (4.0-10.5)
[2019-08-12 11:42] LABS: ALBUMIN 4.1 g/dL (3.5-5.0); ALKALINE PHOSPHATASE 92 U/L (38-126); ANION GAP 8 (5-19); ASPARTATE AMINO TRANSFERASE 24 U/L (17-59); BILIRUBIN,DIRECT 0.2 mg/dL (0.0-0.4); BILIRUBIN,TOTAL 0.4 mg/dL (0.2-1.3); BLOOD UREA NITROGEN 16 mg/dL (7-20); CALCIUM 9.6 mg/dL (8.4-10.2); CARBON DIOXIDE 30 mmol/L (22-30); CHLORIDE 104 mmol/L (98-107); GLUCOSE 79 mg/dL (75-110); POTASSIUM 4.8 mmol/L (3.6-5.0)
[2019-08-12 12:22] LABS: APPEARANCE,URINE CLEAR; BILIRUBIN,URINE NEGATIVE (NEGATIVE); COLOR,URINE STRAW; GLUCOSE, URINE NEGATIVE (NEGATIVE); KETONES,URINE NEGATIVE (NEGATIVE); PROTEIN,URINE NEGATIVE (NEGATIVE); URINE SPECIFIC GRAVITY 1.003; UROBILINOGEN,URINE NEGATIVE mg/dL (<2.0)
--- NOTE | 2019-08-12 14:22 | ER Document Report ---
ED Dizziness/Weakness - General Chief Complaint: Dizziness Stated Complaint: DIZZINESS,NAUSEA Time Seen by Provider: 08/12/19 10:21 Primary Care Provider: ARGENTINA MUSE NP [Primary Care Provider] - Follow up as needed Mode of Arrival: Carried Notes: Patient is a 79-year-old male with a history of gout who presents to the emergency department with a chief complaint of dizziness. Patient reports he has had dizziness for about 1 week. Patient reports that he has seen his primary care physician multiple times and was placed on meclizine and diazepam. Patient reports these interventions did not help. Patient reports he feels dizzy even at rest. He feels that he is nauseous without vomiting. Patient reports this morning he ambulated from his bed to the bathroom and ran into the wall 4 times. Patient reports that he feels like he is drunk and staggers when he ambulates. Patient denies recent fall or head injury. Patient reports that nothing makes the dizziness worse or better and that it is always present. Patient denies headache but does report an uncomfortable sensation to the top of his head. Patient denies chest pain or shortness of breath. Patient denies numbness, tingling or weakness to his upper or lower extremities including his face as well. Patient denies visual changes. TRAVEL OUTSIDE OF THE [place] IN LAST 30 DAYS: No - Related Data Allergies/Adverse Reactions: No Known Allergies Allergy (Verified 06/09/17 18:29) Home Medications: Meclizine. Diazepam Past Medical History - General Information source: Patient - Social History Smoking Status: Unknown if Ever Smoked Lives with: Family Family History: Reviewed & Not Pertinent Patient has suicidal ideation: No Patient has homicidal ideation: No - Past Medical History Cardiac Medical History: Reports: None Pulmonary Medical History: Reports: Hx Pneumonia EENT Medical History: Reports: None Neurological Medical History: Reports: None Endocrine Medical History: Reports: None Renal/ Medical History: Reports: None. 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, Reports Hx Gout Skin Medical History: Reports None Psychiatric Medical History: Reports: None Traumatic Medical History: Reports: None Infectious Medical History: Reports: None Past Surgical History: Reports: Hx Abdominal Surgery - Repair of ulcer, Hx Bowel Surgery - Part of small colon removed, Hx Cholecystectomy - 2011, Hx Genitourinary Surgery - Part of small colon removed - Immunizations Immunizations up to date: Yes Hx Diphtheria, Pertussis, Tetanus Vaccination: Yes - unknown Review of Systems - Review of Systems Constitutional: No symptoms reported EENT: No symptoms reported Cardiovascular: See HPI Respiratory: No symptoms reported Gastrointestinal: No symptoms reported Genitourinary: No symptoms reported Male Genitourinary: No symptoms reported Musculoskeletal: No symptoms reported Skin: No symptoms reported Hematologic/Lymphatic: No symptoms reported Neurological/Psychological: No symptoms reported Physical Exam - Vital signs Vitals: Temp Pulse Resp BP Pulse Ox 97.4 F 62 16 132/69 H 100 08/12/19 09:56 08/12/19 09:56 08/12/19 09:56 08/12/19 09:56 08/12/19 09:56 Interpretation: Normal - Notes Notes: GENERAL: Well-appearing, well-nourished and in no acute distress. HEAD: Atraumatic, normocephalic. EYES: Pupils equal round and reactive to light, extraocular movements intact, sclera anicteric, conjunctiva are normal. No nystagmus. ENT: TMs normal, nares patent, oropharynx clear without exudates. Moist mucous membranes. NECK: Normal range of motion, supple without lymphadenopathy or JVD. LUNGS: Breath sounds clear to auscultation bilaterally and equal. No wheezes rales or rhonchi. HEART: Regular rate and rhythm without murmurs, rubs or gallops. ABDOMEN: Soft, nontender, normoactive bowel sounds. No guarding, no rebound. No masses appreciated. BACK: No cervical, thoracic, lumbar midline tenderness. No saddle anesthesia, normal distal neurovascular exam. GENITOURINARY: Deferred. EXTREMITIES: Normal range of motion, no pitting or edema. No clubbing or cyanosis. NEUROLOGICAL: Cranial nerves II through XII grossly intact. Normal speech. PSYCH: Normal mood, normal affect. SKIN: Warm, Dry, normal turgor, no rashes or lesions noted. Course - Re-evaluation Re-evalutation: 08/12/19 14:21 Patient's neurological examination was unremarkable. We will attempt to a mbulate the patient with assistance. Will obtain a CT of the head. My plan is to admit the patient for observation to rule out stroke and have further testing such as an MRI. Patient has been on meclizine and diazepam for 1 week without resolution or improvement with his symptoms. 08/12/19 15:[address] Samuel, the hospitalist to admit the patient for dizziness and a further work-up as he continues to have the dizziness. I did update the patient and his in regards to his admission status. Patient and deny questions at this time. The PCT did ambulate the patient. It was documented that he had a steady gait. The patient states that he did have dizziness with walking. - Vital Signs Vital signs: Temp Pulse Resp BP Pulse Ox 97.4 F 62 16 125/73 100 08/12/19 09:56 08/12/19 09:56 08/12/19 14:01 08/12/19 14:00 08/12/19 14:01 - Laboratory Result Diagrams: 08/12/19 10:40 08/12/19 10:40 Laboratory results interpreted by me: 08/12/19 10:40 Hgb 11.9 L Hct 36.3 L MCH 26.9 L RDW 16.3 H 08/12/19 15:39 Patient's blood work does not show significant leukocytosis, anemia or alteration of electrolytes. Patient's troponin was negative. Patient's urinalysis unremarkable. Laboratory 08/12/19 08/12/19 08/12/19 10:40 10:40 10:40 WBC 6.4 RBC 4.44 Hgb 11.9 L Hct 36.3 L MCV 82 MCH 26.9 L MCHC 32.9 RDW 16.3 H Plt Count 294 Lymph % (Auto) 26.0 [place] % (Auto) 9.4 Eos % (Auto) 4.8 Baso % (Auto) 0.6 Absolute Neuts (auto) 3.8 Absolute Lymphs (auto) 1.7 Absolute Monos (auto) 0.6 Absolute Eos (auto) 0.3 Absolute Basos (auto) 0.0 Seg Neutrophils % 59.2 Sodium 142.4 Potassium 4.8 Chloride 104 Carbon Dioxide 30 Anion Gap 8 BUN 16 Creatinine 0.92 Est GFR ( Amer) > 60 Est GFR (MDRD) Non-Af > 60 Glucose 79 Calcium 9.6 Total Bilirubin 0.4 Direct Bilirubin 0.2 Neonat Total Bilirubin Not Reportable Neonat Direct Bilirubin Not Reportable Neonat Indirect Bili Not Reportable AST 24 ALT 14 Alkaline Phosphatase 92 Troponin I < 0.012 Total Protein 7.0 Albumin 4.1 Lipase 58.6 Urine Color Urine Appearance Urine pH Ur Specific [place] Urine Protein Urine Glucose (UA) Urine Ketones Urine Blood Urine Nitrite (Reflex) Urine Bilirubin Urine Urobilinogen Leukocyte Esterase Rfl Urine Mucus (Auto) Urine Ascorbic Acid 08/12/19 10:40 WBC RBC Hgb Hct MCV MCH MCHC RDW Plt Count Lymph % (Auto) [place] % (Auto) Eos % (Auto) Baso % (Auto) Absolute Neuts (auto) Absolute Lymphs (auto) Absolute Monos (auto) Absolute Eos (auto) Absolute Basos (auto) Seg Neutrophils % Sodium Potassium Chloride Carbon Dioxide Anion Gap BUN Creatinine Est GFR ( Amer) Est GFR (MDRD) Non-Af Glucose Calcium Total Bilirubin Direct Bilirubin Neonat Total Bilirubin Neonat Direct Bilirubin Neonat Indirect Bili AST ALT Alkaline Phosphatase Troponin I Total Protein Albumin Lipase Urine Color STRAW Urine Appearance CLEAR Urine pH 7.0 Ur Specific [place] 1.003 Urine Protein NEGATIVE Urine Glucose (UA) NEGATIVE Urine Ketones NEGATIVE Urine Blood NEGATIVE Urine Nitrite (Reflex) NEGATIVE Urine Bilirubin NEGATIVE Urine Urobilinogen NEGATIVE Leukocyte Esterase Rfl NEGATIVE Urine Mucus (Auto) RARE Urine Ascorbic Acid NEGATIVE 08/12/19 15:39 - Diagnostic Test Radiology reviewed: Reports reviewed Radiology results interpreted by me: 08/12/19 15:[address] 08/12/19 13:58 IMPRESSION: NORMAL BRAIN CT WITHOUT CONTRAST. EVIDENCE OF ACUTE STROKE: NO. - EKG Interpretation by Me Additional EKG results interpreted by pa: 08/12/19 14:22 Patient's EKG shows a sinus bradycardia with a heart rate of 51. Patient's IA interval is 156, QT is 420 and QTc is 387. Patient has a normal axis deviation. There is no significant ST segment changes in consecutive leads. Discharge - Discharge Clinical Impression: Dizziness Condition: Stable Disposition: ADMITTED OBSERVATION Admitting Provider: Jimmie (Hospitalist) Unit Admitted: Medical Floor Referrals: ARGENTINA MUSE VOLCANOLOGIST [Primary Care Provider] - Follow up as needed
--- NOTE | 2019-08-12 15:08 | RADIOLOGY REPORT (SQ) ---
EXAM DESCRIPTION: CT HEAD WITHOUT COMPLETED DATE/TIME: 08/12/2019 2:43 pm REASON FOR STUDY: dizziness x 1 week COMPARISON: None. TECHNIQUE: Axial images acquired through the brain without intravenous contrast. Images reviewed wi th bone, brain and subdural windows. Additional sagittal and coronal reconstructions were generated. Images stored on PACS. All CT scanners at this facility use dose modulation, iterative reconstruction, and/or weight based d osing when appropriate to reduce radiation dose to as low as reasonably achievable (ALARA). [facility]: Dose Right [facility]: CareDose [facility]: Dose Right [facility]: Teradose 4D [facility]: ChoreMonster RADIATION DOSE: CT Rad equipment meets quality standard of care and radiation dose reduction techniq ues were employed. CTDIvol: 53.2 mGy. DLP: 1044 mGy-cm. mGy. LIMITATIONS: Mild motion artifact FINDINGS: VENTRICLES: Normal size and contour. CEREBRUM: No masses. No hemorrhage. No midline shift. No evidence for acute infarction. Normal gra y/white matter differentiation. No areas of low density in the white matter. CEREBELLUM: No masses. No hemorrhage. No alteration of density. No evidence for acute infarction. EXTRAAXIAL SPACES: No fluid collections. No masses. ORBITS AND GLOBE: No intra- or extraconal masses. Normal contour of globe without masses. CALVARIUM: No fracture. PARANASAL SINUSES: No fluid or mucosal thickening. SOFT TISSUES: No mass or hematoma. OTHER: No other significant finding. IMPRESSION: NORMAL BRAIN CT WITHOUT CONTRAST. EVIDENCE OF ACUTE STROKE: NO. COMMENT: Quality ID # [id number]: Final reports with documentation of one or more dose reduction techniques (e.g., Automated exposure control, adjustment of the mA and/or kV according to patient size, use of iterative reconstruction technique) TECHNICAL DOCUMENTATION: JOB ID: [id number] [employer]- All Rights Reserved Reading location - IP/workstation name: [email or web address]
[2019-08-12] MEDS ORDERED: TEMAZEPAM 15 MG CAPSULE PO PRN (18:55)
[2019-08-12] MEDS ORDERED: ONDANSETRON HCL INJ/PF 4 MG/2 ML SDV IV PRN (18:55)
[2019-08-12] MEDS ORDERED: IPRATROPIUM/ALBUTEROL 0.5-2.5 MG/3 ML AMPUL NEB PRN (18:55)
[2019-08-12] MEDS ORDERED: ACETAMINOPHEN 325 MG TABLET PO PRN (18:55)
[2019-08-12] MEDS ORDERED: MECLIZINE HCL 25 MG TABLET PO PRN (19:01)
[2019-08-12] MEDS ORDERED: METOPROLOL TARTRATE PF/INJ 5 MG/5 ML SDV IV PRN (19:01)
[2019-08-12] MEDS ORDERED: HYDRALAZINE HCL INJ/PF 20 MG/1 ML SDV IV PRN (19:01)
--- NOTE | 2019-08-12 19:07 | PDOC H&P ---
History of Present Illness Admission Date/PCP: 08/12/19 15:55 ARGENTINA MUSE NP History of Present Illness: CLIFTON DAVIS is a 79 year old male no significant past medical history co mplaining of persistent vertigo for the last 1 week. Patient stating that her vertigo is constant, worsened by any type of movement, and he feels very imbalanced when walking like he is going to fall down, denies any syncope, palpitation, chest pain, any recent upper respiratory infection or ear in fection, hearing loss, fever, numbness tingling or any focal neurological symptoms. Has seen his PCP several times and has been sent home with diazepam and meclizine with no significant effect. In ED CT head was negative. Question was raised about possible posterior circulation infarction and hospital was consulted for admission. Past Medical History Cardiac Medical History: Reports: None Pulmonary Medical History: Reports: Pneumonia EENT Medical History: Reports: None Neurological Medical History: Reports: None Endocrine Medical History: Reports: None Renal/ Medical History: Reports: None Malignancy Medical History: Reports: None Musculoskeltal Medical History: Reports: Arthritis - gout, Gout Skin Medical History: Reports: None Psychiatric Medical History: Reports: None Traumatic Medical History: Reports: None Hematology: Reports: Anemia Infectious Medical History: Reports: None Past Surgical History Past Surgical History: Reports: Cholecystectomy - 2011 Social History Lives with: Family Smoking Status: Unknown if Ever Smoked Frequency of Alcohol Use: None Hx Recreational Drug Use: No Hx Prescription Drug Abuse: No Family History Family History: Reviewed & Not Pertinent Parental Family History Reviewed: Yes Children Family History Reviewed: Yes Sibling(s) Family History Reviewed.: Yes Medication/Allergy Home Medications: Allopurinol [Zyloprim 300 mg Tablet] 1 tab PO DAILY 05/11/19 Meclizine HCl [Antivert 12.5 mg Tablet] 12.5 mg PO Q8 PRN 14 Days #42 tablet 08/13/19 Ondansetron HCl [Zofran] 8 mg PO Q8 PRN 14 Days #42 tablet 08/13/19 Allergies/Adverse Reactions: No Known Allergies Allergy (Verified 06/09/17 18:29) Review of Systems Review of Systems: as per hpi Physical Exam Vital Signs: Temp Pulse Resp BP Pulse Ox 97.4 F 62 15 143/71 H 100 08/12/19 09:56 08/12/19 10:24 08/12/19 18:07 08/12/19 18:07 08/12/19 18:07 Intake & Output 08/11/19 08/12/19 08/13/19 06:59 06:59 06:59 Weight 62.7 kg General appearance: PRESENT: no acute distress, well-developed, well-nourished Eye exam: PRESENT: conjunctiva pink, EOMI, PERRLA. ABSENT: scleral icterus Respiratory exam: PRESENT: clear to auscultation gt. ABSENT: rales, rhonchi, wheezes Cardiovascular exam: PRESENT: RRR. ABSENT: diastolic murmur, rubs, systolic murmur GI/Abdominal exam: PRESENT: normal bowel sounds, soft. ABSENT: distended, guarding, mass, organolmegaly, rebound, tenderness Extremities exam: PRESENT: full ROM. ABSENT: calf tenderness, clubbing, pedal edema Neurological exam: PRESENT: alert, awake, oriented to person, oriented to place, oriented to time, oriented to situation, CN II-XII grossly intact. ABSENT: motor sensory deficit Skin exam: PRESENT: dry, intact, warm. ABSENT: cyanosis, rash Results Laboratory Results: 08/12/19 10:40 08/12/19 10:40 08/12/19 08/12/19 08/12/19 10:40 10:40 10:40 WBC 6.4 RBC 4.44 Hgb 11.9 L Hct 36.3 L MCV 82 MCH 26.9 L MCHC 32.9 RDW 16.3 H Plt Count 294 Seg Neutrophils % 59.2 Sodium 142.4 Potassium 4.8 Chloride 104 Carbon Dioxide 30 Anion Gap 8 BUN 16 Creatinine 0.92 Est GFR ( Amer) > 60 Glucose 79 Calcium 9.6 Total Bilirubin 0.4 AST 24 Alkaline Phosphatase 92 Total Protein 7.0 Albumin 4.1 Lipase 58.6 Urine Color STRAW Urine Appearance CLEAR Urine pH 7.0 Ur Specific [place] 1.003 Urine Protein NEGATIVE Urine Glucose (UA) NEGATIVE Urine Ketones NEGATIVE Urine Blood NEGATIVE 08/12/19 10:40 Troponin I < 0.012 Impressions: Head CT 08/12/19 13:58 IMPRESSION: NORMAL BRAIN CT WITHOUT CONTRAST. EVIDENCE OF ACUTE STROKE: NO. Assessment and Plan - Diagnosis (1) BPV (benign positional vertigo) Qualifiers: Laterality: right Qualified Code(s): H81.11 - Benign paroxysmal vertigo, right ear Is this a current diagnosis for this admission?: Yes (2) Vertigo Is this a current diagnosis for this admission?: Yes Plan: Likely benign positional vertigo. Positive Den-Hallpike maneuver. Cannot rule out posterior CVA. Admit to telemetry. PRN meclizine. MRI to rule out any posterior CVA. (3) Loss of balance Is this a current diagnosis for this admission?: Yes Plan: As per #1.
--- NOTE | 2019-08-12 19:46 | RADIOLOGY REPORT (SQ) ---
EXAM DESCRIPTION: MRI HEAD WITHOUT COMPLETED DATE/TIME: 08/12/2019 7:28 pm REASON FOR STUDY: Dizziness, [place] Balance E78.2 MIXED HYPERLIPIDEMIA COMPARISON: None. TECHNIQUE: Multiplanar imaging includes non-contrasted T1, T2, FLAIR, and diffusion with ADC map seq uences. Images stored on PACS. LIMITATIONS: None. FINDINGS: ANATOMY: No anomalies. Normal vascular flow voids. Pituitary fossa normal. CSF SPACES: Normal in size and contour. No hemorrhage. CEREBRUM: Sulci and gyri normal in size and contour. Normal white matter signal on FLAIR imaging. No evidence of hemorrhage, mass, or extraaxial fluid collection. POSTERIOR FOSSA: No signal alteration. No hemorrhage. No edema, masses or mass effect. Internal jennifer tory canals, cerebello-pontine angles, mastoids normal. DIFFUSION IMAGING: Negative for acute or sub-acute infarction. ORBITS: No masses. Globes normal. PARANASAL SINUSES: No fluid levels. Mucosa normal. OTHER: No other significant finding. IMPRESSION: NORMAL MRI OF THE BRAIN WITHOUT INTRAVENOUS GADOLINIUM CONTRAST. EVIDENCE OF ACUTE STROKE: NO. TECHNICAL DOCUMENTATION: JOB ID: [id number]- All Rights Reserved Reading location - IP/workstation name: [email or web address]
[2019-08-12] MEDS ORDERED: ATORVASTATIN CALCIUM 20 MG TABLET PO SCH (22:00)
[2019-08-12] MEDS ORDERED: ASPIRIN 81 MG TABLET, CHEWABLE PO SCH (22:00)
[2019-08-12] MEDS: HEPARIN SOD (PORCINE) 5,000 UNIT/ML 1 ML VIAL SUBCUT SCH (22:12)
[2019-08-12] MEDS: FAMOTIDINE 20 MG TABLET PO SCH (22:12)
[2019-08-12] MEDS ORDERED: INFLUENZA QUAD (6MOS+) 2019-20 VAC 0.5 ML SYR IM ONE (22:57)
[2019-08-13] MEDS: HEPARIN SOD (PORCINE) 5,000 UNIT/ML 1 ML VIAL SUBCUT SCH (05:14)
[2019-08-13 08:14] LABS: CHOLESTEROL 142.63 mg/dL (0-200); TRIGLYCERIDES 48 mg/dL (<150)
[2019-08-13 08:24] LABS: DIRECT LDL 89 mg/dL (<100)
[2019-08-13] MEDS: FAMOTIDINE 20 MG TABLET PO SCH (09:29)
[2019-08-13] MEDS ORDERED: ALLOPURINOL 300 MG TABLET PO SCH (10:00)
[2019-08-13 11:00] VITALS: BP 129/65
--- NOTE | 2019-08-13 12:55 | EKG REPORT ---
SEVERITY:- NORMAL ECG - SINUS RHYTHM : Confirmed by: Martin Jasmine 13-Aug-2019 12:54:20
--- NOTE | 2019-08-15 14:46 | PDOC DISCHARGE SUMMARY ---
Impression - Admit/DC Date/PCP Admission Date/Primary Care Provider: 08/12/19 15:55 ARGENTINA MUSE NP Discharge Date: 08/15/19 - Discharge Diagnosis (1) Vertigo Is this a current diagnosis for this admission?: Yes (2) Loss of balance Is this a current diagnosis for this admission?: Yes - Additional Information Resuscitation Status: Full Code Discharge Diet: As Tolerated Discharge Activity: Activity As Tolerated, Balance Activity w/Rest Referrals: ARGENTINA MUSE NP [Primary Care Provider] - 08/25/19 10:00 am Prescriptions: Meclizine HCl [Antivert 12.5 mg Tablet] 12.5 mg PO Q8 PRN 14 Days #42 tablet PRN Reason: Ondansetron HCl [Zofran] 8 mg PO Q8 PRN 14 Days #42 tablet PRN Reason: Home Medications: Allopurinol [Zyloprim 300 mg Tablet] 1 tab PO DAILY 05/11/19 Meclizine HCl [Antivert 12.5 mg Tablet] 12.5 mg PO Q8 PRN 14 Days #42 tablet 08/13/19 Ondansetron HCl [Zofran] 8 mg PO Q8 PRN 14 Days #42 tablet 08/13/19 History of Present Illiness History of Present Illness: CLIFTON DAVIS is a 79 year old male no significant past medical history complaining of persistent vertigo for the last 1 week. Patient stating that her vertigo is constant, worsened by any type of movement, and he feels very imbalanced when walking like he is going to fall down, denies any syncope, palpitation, chest pain, any recent upper respiratory infection or ear infection, hearing loss, fever, numbness tingling or any focal neurological symptoms. Has seen his PCP several times and has been sent home with diazepam and meclizine with no significant effect. In ED CT head was negative. Question was raised about possible posterior circulation infarction and hospital was consulted for admission. Hospital Course Hospital Course: (1) BPV (benign positional vertigo) Benign positional vertigo affecting the right side. Den-Hallpike maneuver positive. Given age and presentation MRI head was done to rule out any posterior stroke. MRI head negative for any acute abnormalities. Patient received several Shira maneuver in the hospital with reporting of significant relief in his symptoms. Patient and family training Shira maneuver and patient was discharged on Zofran and meclizine as needed. (2) Vertigo As per #1 Admit to telemetry. PRN meclizine. MRI to rule out any posterior CVA. (3) Loss of balance MRI Negative. EKG no acute abnormality. Telemetry monitoring no abnormalities. Patient denied any chest pain palpitation lightheadedness syncope or presyncope. Physical Exam Vital Signs: Temp Pulse Resp BP Pulse Ox 97.4 F 85 14 131/56 H 98 08/13/19 10:41 08/13/19 10:41 08/13/19 10:41 08/13/19 10:41 08/13/19 10:41 General appearance: PRESENT: no acute distress, well-developed, well-nourished Head exam: PRESENT: atraumatic, normocephalic Eye exam: PRESENT: conjunctiva pink, EOMI, PERRLA. ABSENT: scleral icterus Ear exam: PRESENT: normal external ear exam Mouth exam: PRESENT: moist, tongue midline Neck exam: ABSENT: carotid bruit, JVD, lymphadenopathy, thyromegaly Respiratory exam: PRESENT: clear to auscultation gt. ABSENT: rales, rhonchi, wheezes Cardiovascular exam: PRESENT: RRR. ABSENT: diastolic murmur, rubs, systolic murmur Pulses: PRESENT: normal dorsalis pedis pul Vascular exam: PRESENT: normal capillary refill GI/Abdominal exam: PRESENT: normal bowel sounds, soft. ABSENT: distended, guarding, mass, organolmegaly, rebound, tenderness Rectal exam: PRESENT: deferred Extremities exam: PRESENT: full ROM. ABSENT: calf tenderness, clubbing, pedal edema Neurological exam: PRESENT: alert, awake, oriented to person, oriented to place, oriented to time, oriented to situation, CN II-XII grossly intact. ABSENT: motor sensory deficit Psychiatric exam: PRESENT: appropriate affect, normal mood. ABSENT: homicidal ideation, suicidal ideation Skin exam: PRESENT: dry, intact, warm. ABSENT: cyanosis, rash Results Laboratory Results: WBC 6.4 10^3/uL (4.0-10.5) 08/12/19 10:40 RBC 4.44 10^6/uL (4.35-5.55) 08/12/19 10:40 Hgb 11.9 g/dL (13.5-17.0) L 08/12/19 10:40 Hct 36.3 % (37.9-51.0) L 08/12/19 10:40 MCV 82 fl (80-97) 08/12/19 10:40 MCH 26.9 pg (27.0-33.4) L 08/12/19 10:40 MCHC 32.9 g/dL (32.0-36.0) 08/12/19 10:40 RDW 16.3 % (11.5-14.0) H 08/12/19 10:40 Plt Count 294 10^3/uL (150-450) 08/12/19 10:40 Lymph % (Auto) 26.0 % (13-45) 08/12/19 10:40 [place] % (Auto) 9.4 % (3-13) 08/12/19 10:40 Eos % (Auto) 4.8 % (0-6) 08/12/19 10:40 Baso % (Auto) 0.6 % (0-2) 08/12/19 10:40 Absolute Neuts (auto) 3.8 10^3/uL (1.7-8.2) 08/12/19 10:40 Absolute Lymphs (auto) 1.7 10^3/uL (0.5-4.7) 08/12/19 10:40 Absolute Monos (auto) 0.6 10^3/uL (0.1-1.4) 08/12/19 10:40 Absolute Eos (auto) 0.3 10^3/uL (0.0-0.6) 08/12/19 10:40 Absolute Basos (auto) 0.0 10^3/uL (0.0-0.2) 08/12/19 10:40 Seg Neutrophils % 59.2 % (42-78) 08/12/19 10:40 Sodium 142.4 mmol/L (137-145) 08/12/19 10:40 Potassium 4.8 mmol/L (3.6-5.0) 08/12/19 10:40 Chloride 104 mmol/L (98-107) 08/12/19 10:40 Carbon Dioxide 30 mmol/L (22-30) 08/12/19 10:40 Anion Gap 8 (5-19) 08/12/19 10:40 BUN 16 mg/dL (7-20) 08/12/19 10:40 Creatinine 0.92 mg/dL (0.52-1.25) 08/12/19 10:40 Est GFR ( Amer) > 60 (>60) 08/12/19 10:40 Est GFR (MDRD) Non-Af > 60 (>60) 08/12/19 10:40 Glucose 79 mg/dL (75-110) 08/12/19 10:40 Calcium 9.6 mg/dL (8.4-10.2) 08/12/19 10:40 Total Bilirubin 0.4 mg/dL (0.2-1.3) 08/12/19 10:40 Direct Bilirubin 0.2 mg/dL (0.0-0.4) 08/12/19 10:40 Neonat Total Bilirubin Not Reportable 08/12/19 10:40 Neonat Direct Bilirubin Not Reportable 08/12/19 10:40 Neonat Indirect Bili Not Reportable 08/12/19 10:40 AST 24 U/L (17-59) 08/12/19 10:40 ALT 14 U/L (<50) 08/12/19 10:40 Alkaline Phosphatase 92 U/L (38-126) 08/12/19 10:40 Troponin I < 0.012 ng/mL 08/12/19 10:40 Total Protein 7.0 g/dL (6.3-8.2) 08/12/19 10:40 Albumin 4.1 g/dL (3.5-5.0) 08/12/19 10:40 Triglycerides 48 mg/dL (<150) 08/13/19 07:37 Cholesterol 142.63 mg/dL (0-200) 08/13/19 07:37 LDL Cholesterol Direct 89 mg/dL (<100) 08/13/19 07:37 VLDL Cholesterol 10.0 mg/dL (10-31) 08/13/19 07:37 HDL Cholesterol 47 mg/dL (>40) 08/13/19 07:37 Lipase 58.6 U/L (23-300) 08/12/19 10:40 Urine Color STRAW 08/12/19 10:40 Urine Appearance CLEAR 08/12/19 10:40 Urine pH 7.0 (5.0-9.0) 08/12/19 10:40 Ur Specific [place] 1.003 08/12/19 10:40 Urine Protein NEGATIVE mg/dL (NEGATIVE) 08/12/19 10:40 Urine Glucose (UA) NEGATIVE mg/dL (NEGATIVE) 08/12/19 10:40 Urine Ketones NEGATIVE mg/dL (NEGATIVE) 08/12/19 10:40 Urine Blood NEGATIVE (NEGATIVE) 08/12/19 10:40 Urine Nitrite (Reflex) NEGATIVE (NEGATIVE) 08/12/19 10:40 Urine Bilirubin NEGATIVE (NEGATIVE) 08/12/19 10:40 Urine Urobilinogen NEGATIVE mg/dL (<2.0) 08/12/19 10:40 Leukocyte Esterase Rfl NEGATIVE (NEGATIVE) 08/12/19 10:40 Urine Mucus (Auto) RARE /LPF 08/12/19 10:40 Urine Ascorbic Acid NEGATIVE (NEGATIVE) 08/12/19 10:40 08/12/19 10:40 Troponin I < 0.012 Impressions: Head MRI 08/12/19 00:00 IMPRESSION: NORMAL MRI OF THE BRAIN WITHOUT INTRAVENOUS GADOLINIUM CONTRAST. EVIDENCE OF ACUTE STROKE: NO. Head CT 08/12/19 13:58 IMPRESSION: NORMAL BRAIN CT WITHOUT CONTRAST. EVIDENCE OF ACUTE STROKE: NO. Stroke Is this a Stroke Patient?: No Acute Heart Failure - Is this a Heart Failure Patient?: No
== END 2019-08-13 11:15 | disposition home or self-care (01) ==
LOC: ER 09:48 → EH 15:55 → 3W 21:25
PROVIDERS: ADMIT Internal Medicine; ATTEND Internal Medicine
DX: H81.11 Benign paroxysmal vertigo, right ear (principal); E78.2 Mixed hyperlipidemia; M10.9 Gout, unspecified; Z90.49 Acquired absence of other specified parts of digestive tract; Z23 Encounter for immunization
CPT/HCPCS: 93005; 99285; 36415 ×2; 83690; 85025; 80053; 81001; 84484; 80061; 70551; 70450; 90686; 93010; A9270 ×5; J1644 ×2; G0378

== ENCOUNTER 2019-12-12 07:38 | Emergency (ER) | payer MEDICARE, OTHER ==
[2019-12-12 07:51] VITALS: BP 130/60
--- NOTE | 2019-12-12 07:54 | ER Document Report ---
ED General - General Chief Complaint: Foot Pain Stated Complaint: RIGHT FOOT PAIN Time Seen by Provider: 12/12/19 07:52 Primary Care Provider: ARGENTINA MUSE NP [Primary Care Provider] - Follow up as needed Notes: 71-year-old male presents with right posterior heel pain worse with walking onset about 2 days ago. No swelling no redness. No injury. No blood thinners. No numbness no tingling. TRAVEL OUTSIDE OF THE [place] IN LAST 30 DAYS: No - Related Data Allergies/Adverse Reactions: No Known Allergies Allergy (Verified 06/09/17 18:29) Past Medical History - General Information source: Patient - Social History Smoking Status: Never Smoker Family History: Reviewed & Not Pertinent Pulmonary Medical History: Reports: Hx Pneumonia Renal/ Medical History: Denies: Hx Peritoneal Dialysis GI Medical History: Reports: Hx Ulcer, Hx Colonoscopy, Hx Endoscopy Musculoskeletal Medical History: 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, Reports Hx Gout Past Surgical History: Reports: Hx Abdominal Surgery - Repair of ulcer, Hx Bowel Surgery - Part of small colon removed, Hx Cholecystectomy - 2011, Hx Genitourinary Surgery - Part of small colon removed - Immunizations Immunizations up to date: Yes Hx Diphtheria, Pertussis, Tetanus Vaccination: Yes - unknown Review of Systems - Review of Systems Notes: REVIEW OF SYSTEMS GEN: Denies fever, chills, weight loss ENT: Denies sore throat, nasal discharge, ear pain EYES: Denies blurry vision, eye pain, discharge CV: Denies chest pain, palpitations, edema RESP: Denies cough, shortness of breath, wheezing GI: Denies abdominal pain, nausea, vomiting, diarrhea MSK: Right heel pain SKIN: Denies rash, skin lesions LYMPH: Denies swollen glands/lymph nodes NEURO: Denies headache, focal weakness or numbness, dizziness PSYCH: Denies depression, suicidal or homicidal ideation PHYSICAL EXAMINATION General: No acute distress, well-nourished Head: Atraumatic, normocephalic ENT: Mouth normal, oropharynx moist, no exudates or tonsillar enlargement Eyes: Conjunctiva normal, pupils equal, lids normal Neck: No JVD, supple, no guarding CVS: Normal rate, regular rhythm, no murmurs Resp: No resp distress, equal and normal breath sounds bilaterally GI: Nondistended, soft, no tenderness to palpation, no rebound or guarding Ext: As on the right heel. No Achilles tenderness or defect, full range of motion no swelling no apparent inflammation Back: No CVA or midline TTP Skin: No rash, warm Lymphatic: No lymphadeopathy noted Neuro: Awake, alert. Face symmetric. GCS 15. Physical Exam - Vital signs Vitals: Temp 97.9 F 12/12/19 07:39 Course - Re-evaluation Re-evalutation: 12/12/19 08:19 Heel pain normal vitals no external signs of trauma or infection Likely plantar fasciitis versus spurs. Ice Motrin elevation shoe advice was given. Patient is stable for discharge. I have discussed with the patient there likely diagnosis, aftercare plan, follow-up plans and my usual and customary return precautions. They verbalized understanding of this. - Vital Signs Vital signs: Temp Pulse Resp BP Pulse Ox 97.9 F 63 18 130/60 H 98 12/12/19 07:43 12/12/19 07:43 12/12/19 07:43 12/12/19 07:43 12/12/19 07:43 Discharge - Discharge Clinical Impression: Pain of right heel Condition: Good Disposition: HOME, SELF-CARE Instructions: Plantar Fasciitis or Heel Spur ([facility]) Referrals: ARGENTINA MUSE DIRECTOR OF VIDEO ANALYTICS [Primary Care Provider] - Follow up as needed
== END 2019-12-12 08:20 | disposition home or self-care (01) ==
LOC: ER 07:38
DX: M79.671 Pain in right foot (principal)
CPT/HCPCS: 99283

== ENCOUNTER 2019-12-15 21:22 | Emergency (ER) | payer MEDICARE, OTHER ==
--- NOTE | 2019-12-15 22:35 | ER Document Report ---
ED Medical Screen (RME) - General Chief Complaint: Jaw Pain Stated Complaint: JAW LOCKED Time Seen by Provider: 12/15/19 22:32 Primary Care Provider: ARGENTINA MUSE NP [Primary Care Provider] - Follow up as needed Notes: HPI: 75-year-old male presenting for lockjaw tonight. Patient yawned and felt like the right jaw dislocated. States it is happened before and has had to have it popped back into place. PHYSICAL EXAMINATION: Patient with some difficulty opening and closing the mouth. Not able to fully close. There is tenderness along the right lateral mandibular condyle. I have greeted and performed a rapid initial assessment of this patient. A comprehensive ED assessment and evaluation of the patient, analysis of test results and completion of medical decision making process will be conducted by an additional ED providers. TRAVEL OUTSIDE OF THE [place] IN LAST 30 DAYS: No - Related Data Allergies/Adverse Reactions: No Known Allergies Allergy (Verified 06/09/17 18:29) Home Medications: allupurinol. muscle relaxer-doesn't know name Past Medical History Pulmonary Medical History: Reports: Hx Pneumonia Renal/ Medical History: Denies: Hx Peritoneal Dialysis GI Medical History: Reports: Hx Ulcer, Hx Colonoscopy, Hx Endoscopy Musculoskeltal Medical History: 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, Reports Hx Gout Past Surgical History: Reports: Hx Abdominal Surgery - Repair of ulcer, Hx Bowel Surgery - Part of small colon removed, Hx Cholecystectomy - 2011, Hx Genitourinary Surgery - Part of small colon removed - Immunizations Immunizations up to date: Yes Hx Diphtheria, Pertussis, Tetanus Vaccination: Yes - unknown Physical Exam - Vital signs Vitals: Temp Pulse Resp BP Pulse Ox 97.7 F 78 16 142/68 H 99 12/15/19 21:30 12/15/19 21:30 12/15/19 21:30 12/15/19 21:30 12/15/19 21:30 Course - Vital Signs Vital signs: Temp Pulse Resp BP Pulse Ox 97.7 F 78 16 142/68 H 99 12/15/19 22:29 12/15/19 21:30 12/15/19 21:30 12/15/19 21:30 12/15/19 21:30 Doctor's Discharge - Discharge Referrals: ARGENTINA MUSE TRANSPORTATION LEAD [Primary Care Provider] - Follow up as needed
--- NOTE | 2019-12-15 23:14 | RADIOLOGY REPORT (SQ) ---
EXAM DESCRIPTION: XR MANDIBLE 4 OR MORE VIEWS COMPLETED DATE/TME: 12/15/2019 22:34 CLINICAL HISTORY: 79 years, Male, poss right condyle dislocation COMPARISON: CT head performed on 08/12/2019 NUMBER OF VIEWS: 4 TECHNIQUE: Frontal and oblique radiographs were obtained LIMITATIONS: None. FINDINGS: The patient is edentulous. No definite acute fractures identified. Both the right and left temporomandibular joints appear aligned in the open position with the mandibular head anterior to the condylar fossae. Visualized orbits appear within normal limits. Paranasal sinuses appear overall clear. Mastoid air cells are also grossly clear. No definite acute fracture is clearly identified. IMPRESSION: No definite acute radiographic abnormality. If there is a high level of concern, consider CT. copyright 2010 [facility] [employer]- All Rights Reserved
--- NOTE | 2019-12-16 00:21 | ER Document Report ---
HPI - HPI Time Seen by Provider: 12/15/19 22:32 Pain Level: 5 Notes: CHIEF COMPLAINT: Jaw pain HPI:75-year-old male presenting for lockjaw tonight. Patient yawned and felt like the right jaw dislocated. States it is happened before and has had to have it popped back into place. ROS: See HPI - all other systems were reviewed and are otherwise negative Constitutional: no fever Eyes: no drainage, no blurred vision ENT: no runny nose, no sore throat, positive jaw pain with difficulty closing mouth Cardiovascular: no chest pain Resp: no SOB, no cough GI: no vomiting, no diarrhea, no abdominal pain : no dysuria Integumentary: no rash Allergy: no hives Musculoskeletal: no extremity pain or swelling Neurological: no numbness/tingling, no weakness MEDICATIONS: I agree with the patient medications as charted by the RN. ALLERGIES: I agree with the allergies as charted by the RN. PAST MEDICAL HISTORY/PAST SURGICAL HISTORY: Reviewed and agree as charted by RN. SOCIAL HISTORY: Reviewed and agree as charted by RN. FAMILY HISTORY: No significant familial comorbid conditions directly related to patient complaint EXAM: Reviewed vital signs as charted by RN. CONSTITUTIONAL: Alert and oriented and responds appropriately to questions. Well-appearing; well-nourished HEAD: Normocephalic; atraumatic EYES: PERRL; Conjunctivae clear, sclerae non-icteric ENT: normal nose; no rhinorrhea; moist mucous membranes; pharynx without lesions noted, no uvula edema or deviation, no tonsillar hypertrophy, phonation normal. Patient with some difficulty closing the mouth fully with pain over the right mandibular condyle on palpation NECK: Supple without meningismus; non-tender; no cervical lymphadenopathy, no masses CARD: Capillary refill less than 3 seconds; symmetric distal pulses RESP: Normal chest excursion without splinting or tachypnea ABD/GI: Normal bowel sounds; non-distended; soft BACK: The back appears normal EXT: Normal ROM in all joints; no cyanosis, no effusions, no edema SKIN: Normal color for age and race; warm; dry; good turgor; no acute lesions noted NEURO: Moves all extremities equally; Motor and sensory function intact PSYCH: The patient's mood and manner are appropriate. Grooming and personal hygiene are appropriate. MDM: 79-year-old male with possible subluxation of the jaw. I initially saw the patient with the RME process and ordered x-ray imaging which was inconclusive and recommended CT imaging. I had ordered the CT imaging and patient came up to the desk in the lobby and stated that his jaw had popped back and he is now able to fully open and close the mouth with no difficulty and no discomfort. As he is likely reduced he would like to go home and does not want further imaging studies at this time he has no pain on palpation to suggest a fracture - REPRODUCTIVE Reproductive: DENIES: : Past Medical History - Social History Smoking Status: Never Smoker Family History: Reviewed & Not Pertinent Patient has homicidal ideation: No Pulmonary Medical History: Reports: Hx Pneumonia Renal/ Medical History: Denies: Hx Peritoneal Dialysis GI Medical History: Reports: Hx Ulcer, Hx Colonoscopy, Hx Endoscopy Musculoskeletal Medical History: 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, Reports Hx Gout Past Surgical History: Reports: Hx Abdominal Surgery - Repair of ulcer, Hx Bowel Surgery - Part of small colon removed, Hx Cholecystectomy - 2011, Hx Genitourinary Surgery - Part of small colon removed - Immunizations Immunizations up to date: Yes Hx Diphtheria, Pertussis, Tetanus Vaccination: Yes - unknown Vertical Provider Document - INFECTION CONTROL TRAVEL OUTSIDE OF THE [place] IN LAST 30 DAYS: No Course - Vital Signs Vital signs: Temp Pulse Resp BP Pulse Ox 97.7 F 78 16 142/68 H 99 12/15/19 22:29 12/15/19 21:30 12/15/19 21:30 12/15/19 21:30 12/15/19 21:30 Discharge - Discharge Clinical Impression: Closed subluxation of jaw Qualifiers: Encounter type: initial encounter Qualified Code(s): S03.00XA - Dislocation of jaw, unspecified side, initial encounter Condition: Stable Disposition: HOME, SELF-CARE Additional Instructions: Follow-up with your primary care provider or ENT for further evaluation and tr eatment return for worsened or recurrent symptoms Referrals: ARGENTINA MUSE NP [Primary Care Provider] - Follow up as needed KENRDA PAINTING DO [ASSOCIATE] - Follow up as needed
[2019-12-16 05:54] VITALS: BP 133/71
== END 2019-12-16 00:20 | disposition home or self-care (01) ==
LOC: ER 21:22
DX: S03.00XA Dislocation of jaw, unspecified side, initial encounter (principal); X58.XXXA Exposure to other specified factors, initial encounter; Z79.899 Other long term (current) drug therapy
CPT/HCPCS: 70110; 99283

== ENCOUNTER 2020-01-14 19:04 | Emergency (ER) | payer MEDICARE, OTHER ==
[2020-01-14 19:35] VITALS: BP 123/61
--- NOTE | 2020-01-14 21:13 | ER Document Report ---
HPI - HPI Time Seen by Provider: 01/14/20 21:06 Pain Level: Denies Notes: [id number] male presents emergency room for complaints of itching to his right outer ear for the last 2 days. Denies any trauma. Denies any fevers or chills. States he noticed gnats around his ear this morning. Has not tried any [id number] medications. denies fevers, chills, chest pain,palpitations, shortness of breath, dyspnea, nausea, vomiting, diarrhea, abdominal pain, hemat uria,blurred vision, double vision, loss of vision, speech changes, LH, dizziness, syncope, headaches, wheezing, ST, URI, neck pain, weakness, bowel or bladder dysfunction, saddle anesthesia, numbness or tingling in bilateral upper or lower extremities equally, muscle paralysis, weakness in bilateral upper or lower extremities equally or rash. Denies IV drug use. MEDICATIONS: I agree with the patient medications as charted by the RN. ALLERGIES: I agree with the allergies as charted by the RN. PAST MEDICAL HISTORY/PAST SURGICAL HISTORY: Reviewed and agree as charted by RN. SOCIAL HISTORY: Reviewed and agree as charted by RN. FAMILY HISTORY: No significant familial comorbid conditions directly related to patient complaint EXAM: Reviewed vital signs as charted by RN. REVIEW OF SYSTEMS:reviewed vital signs by RN CONSTITUTIONAL : Denies fever, chills, or sweats. Denies recent illness. EENT: Reports itching to his right outer ear. denies eye, ear, throat, or mouth pain or symptoms. Denies nasal or sinus congestion or discharge. Denies throat, tongue, or mouth swelling or difficulty swallowing. CARDIOVASCULAR: Denies chest pain. Denies palpitations or racing or irregular heart beat. Denies ankle edema. RESPIRATORY: Denies cough, cold, or chest congestion. Denies shortness of breath, difficulty breathing, or wheezing. GASTROINTESTINAL: Denies abdominal pain or distention. Denies nausea, vomiting, or diarrhea. Denies blood in vomitus, stools, or per rectum. Denies black, tarry stools. Denies constipation. GENITOURINARY: Denies difficulty urinating, painful urination, burning, frequency, blood in urine, or discharge. MUSCULOSKELETAL: Denies back or neck pain or stiffness. Denies joint pain or swelling. SKIN: Denies rash, lesions or sores. HEMATOLOGIC : Denies easy bruising or bleeding. LYMPHATIC: Denies swollen, enlarged glands. NEUROLOGICAL: Denies confusion or altered mental status. Denies passing out or loss of consciousness. Denies dizziness or lightheadedness. Denies headache. Denies weakness or paralysis or loss of use of either side. Denies problems with gait or speech. Denies sensory loss, numbness, or tingling. Denies seizu res. PSYCHIATRIC: Denies anxiety or stress. Denies depression, suicidal ideation, or homicidal ideation. ALL OTHER SYSTEMS REVIEWED AND NEGATIVE. Dictation was performed using [employer] recognition software PHYSICAL EXAMINATION: GENERAL: Well-appearing, well-nourished and in no acute distress. HEAD: Atraumatic, normocephalic. EYES: Pupils equal round and reactive to light, extraocular movements intact, sclera anicteric, conjunctiva are normal. ENT: Right outer ear with macular papular rash Anthelix.no open wounds drainage or erythema. No warmth to touch. Nares patent, oropharynx clear without exudates. Moist mucous membranes. NECK: Normal range of motion, supple without lymphadenopathy LUNGS: Breath sounds clear to auscultation bilaterally and equal. No wheezes rales or rhonchi. HEART: Regular rate and rhythm without murmurs ABDOMEN: Soft, nontender, nondistended abdomen. No guarding, no rebound. No masses appreciated. Musculoskeletal: Normal range of motion, no pitting or edema. No cyanosis. NEUROLOGICAL: Cranial nerves grossly intact. Normal speech, normal gait. Normal sensory, motor exams PSYCH: Normal mood, normal affect. SKIN: Warm, Dry, normal turgor, no rashes or lesions noted. - EENT EENT: REPORTS: Ear Pain - REPRODUCTIVE Reproductive: DENIES: : Past Medical History - General Information source: Patient - Social History Smoking Status: Former Smoker Frequency of alcohol use: Occasional Drug Abuse: None Family History: Reviewed & Not Pertinent Patient has homicidal ideation: No Pulmonary Medical History: Reports: Hx Pneumonia Renal/ Medical History: Denies: Hx Peritoneal Dialysis GI Medical History: Reports: Hx Ulcer, Hx Colonoscopy, Hx Endoscopy Musculoskeletal Medical History: 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, Reports Hx Gout Past Surgical History: Reports: Hx Abdominal Surgery - Repair of ulcer, Hx Bowel Surgery - Part of small colon removed, Hx Cholecystectomy - 2012, Hx Genitourinary Surgery - Part of small colon removed - Immunizations Immunizations up to date: Yes Hx Diphtheria, Pertussis, Tetanus Vaccination: Yes - unknown Vertical Provider Document - CONSTITUTIONAL Agree With Documented VS: Yes Exam Limitations: No Limitations General Appearance: WD/WN - INFECTION CONTROL TRAVEL OUTSIDE OF THE [place] IN LAST 30 DAYS: No Course - Re-evaluation Re-evalutation: 01/14/20 22:05 Afebrile vital stable no distress. Nurses notes reviewed. Discussed with patient that it appears that he has a dermatitis on his ears, advised to apply steroid medication ointment, also advised to apply Bactroban ointment due to his itching to prevent infection. Follow-up with his primary care provider as needed. After performing a Medical Screening Examination, I estimate there is LOW risk for malignant otitis media, mastoiditis, MENINGITIS, or ACUTE CORONARY SYNDROME, thus I consider the discharge disposition reasonable. I have reevaluated this patient multiple times and no significant life threatening changes are noted. The patient and I have discussed the diagnosis and risks, and we agree with discharging home to follow-up on an outpatient basis with the understanding that symptoms and presentations can change. We also discussed returning to the Emergency Department immediately if new or worsening symptoms occur. We have discussed the symptoms which are most concerning (e.g., high fevers, confusion) that necessitate immediate return. - Vital Signs Vital signs: Temp Pulse Resp BP Pulse Ox 98.5 F 78 16 123/61 97 01/14/20 19:34 01/14/20 19:34 01/14/20 19:34 01/14/20 19:34 01/14/20 19:34 Discharge - Discharge Clinical Impression: Dermatitis of right ear canal Condition: Stable Disposition: HOME, SELF-CARE Instructions: Contact Dermatitis ([facility]), Acetaminophen Additional Instructions: Please use ointment as directed. Take oral Benadryl to help with your itching. Please do not itch your ear. Please follow-up with your doctor either on Friday or Friday for reevaluation. If symptoms become worse return to the emergency room. Return immediately for any new or worsening symptoms. Follow up with primary care provider, call tomorrow to make followup appointment. Prescriptions: Mupirocin [Bactroban 2% Ointment 22 gm] 1 applic TP TID #1 tube Triamcinolone Acetonide 1 applic TP BID #60 oint..gm. Referrals: ARGENTINA MUSE, BUFFET MANAGER [Primary Care Provider] - Follow up as needed
== END 2020-01-14 21:20 | disposition home or self-care (01) ==
LOC: ER 19:04
DX: L30.8 Other specified dermatitis (principal)
CPT/HCPCS: 99282